=== PATIENT | female | born 1995 | race Caucasian/White ===

== ENCOUNTER 2018-06-17 17:31 | Emergency (ER) | payer SELFPAY ==
[~2018-06-17] VITALS: Ht 160 cm; Wt 68.2 kg
[2018-06-17 17:38] VITALS: BP 109/67; TEMP 98.7
[2018-06-17] MEDS ORDERED: GENTAMICIN EYE D5 ML OD (18:09)
[2018-06-17 18:33] VITALS: PULSE 82
== END 2018-06-17 18:33 | disposition home or self-care (01) ==
LOC: COL.ER 17:31
DX: S05.02XA Injury of conjunctiva and corneal abrasion without foreign body, left eye, initial encounter (principal); F17.210 Nicotine dependence, cigarettes, uncomplicated; X58.XXXA Exposure to other specified factors, initial encounter

== ENCOUNTER 2021-01-07 19:01 | Emergency (ER) | payer SELFPAY ==
[~2021-01-07] VITALS: Ht 160 cm; Wt 72.7 kg
[~2021-01-07 19:01] MED LIST: GENTAMICIN EYE D5 ML OD
[2021-01-07 19:18] VITALS: TEMP 98
[2021-01-07 19:43] LABS: BASO % 0.3 % (0.0-2.0); EOS # 0.1 K/mm3 (0.0-0.7); EOS % 0.4 % (0-4.0); GRAN # 9.8 K/mm3 (1.4-6.5); HEMOGLOBIN 13.5 g/dl (12.5-16.0); LYMPH # 1.2 K/mm3 (1.2-3.4); LYMPH % 9.5 % (20.0-51.0); MEAN CELL VOLUME 94 fl (80.0-100.0); MEAN CORPUSCULAR HEMOGLOBIN 32 pg (27.0-31.0); MEAN CORPUSCULAR HGB CONC 34 g/dl (33.0-37.0); MONO % 8.5 % (1.7-9.3); PLATELET COUNT 325 K/mm3 (130-400); RED BLOOD COUNT 4.24 M/mm3 (4.10-5.30); REDCELL DISTRIBUTION WIDTH-CV 11.7 % (11.5-14.5)
[2021-01-07 20:06] LABS: ALBUMIN 4.1 gm/dL (3.5-5.0); BILIRUBIN,TOTAL 0.4 mg/dL (0.2-1.2); C-REACTIVE PROTEIN 4.32 mg/dL (0.00-0.50); CREATININE, serum 0.79 mg/dL (0.57-1.11); POTASSIUM 3.9 mmol/L (3.5-4.5)
[2021-01-07 20:21] LABS: COLLECTION METHOD CATHETER
[2021-01-07 20:40] LABS: PH 8 (5-8); SQUAMOUS EPITHELIAL 0-2 /hpf; URINE APPEARANCE Clear; URINE BACTERIA Rare /hpf; URINE BILIRUBIN Negative (NEGATIVE); URINE BLOOD Negative (NEGATIVE); URINE COLOR Yellow; URINE GLUCOSE Negative (NEGATIVE); URINE KETONE Negative (NEGATIVE); URINE LEUKOCYTE ESTERASE 1+ (NEGATIVE); URINE NITRATE Negative (NEGATIVE); URINE PROTEIN(semi-quant) Negative (NEGATIVE); URINE UROBILINOGEN Negative (NEGATIVE)
[2021-01-07] MEDS ORDERED: CEFTIN500 MG PO (21:32)
[2021-01-07 21:45] VITALS: BP 132/70; PULSE 75
== END 2021-01-07 21:45 | disposition home or self-care (01) ==
LOC: COL.ER 19:01
PROVIDERS: Nurse Practitioner
DX: N39.0 Urinary tract infection, site not specified (principal); F17.210 Nicotine dependence, cigarettes, uncomplicated; Z32.02 Encounter for pregnancy test, result negative
CPT/HCPCS: J0696; J7030